=== PATIENT | male | born 1985 | race Caucasian/White ===

== ENCOUNTER 2020-12-03 02:53 | Observation (INO) | payer OTHER ==
[~2020-12-03] VITALS: Ht 175.3 cm; Wt 79.2 kg
[2020-12-03] VITALS (18 sets, daily range): BP systolic 104–129; BP diastolic 55–72
[2020-12-03] MEDS ORDERED: MAALOX 30 ML SUSP *UDC PO PRN (04:50)
[2020-12-03] MEDS ORDERED: MOM 30ML SUSPENSION UDC PO PRN (04:50)
[2020-12-03] MEDS ORDERED: ACETAMINOPHEN TAB 650MG DOSE (2X325MG) PO PRN (04:50)
[2020-12-03] MEDS: D5W/0.9% SODIUM CHLORIDE 1,000 ML IV SCH ×2 (05:25→17:53)
[2020-12-03 05:34] LABS: HEMATOCRIT 31.9 % (42.0-52.0); HEMOGLOBIN 10.8 g/dl (13.5-17.5); MEAN CORPUSCULAR HEMOGLOBIN 31.2 pg (27.0-33.0); MEAN CORPUSCULAR HGB CONC 33.9 g/dl (32.0-36.5); MEAN CORPUSCULAR VOLUME 92.2 fl (80.0-96.0); PLATELET COUNT, AUTOMATED 120 10^3/uL (150-450); RED BLOOD COUNT 3.46 10^6/uL (4.30-6.10); WHITE BLOOD COUNT 6.4 10^3/uL (4.0-10.0)
--- NOTE | 2020-12-03 05:38 | HPEPDOC ---
[facility] Medical History & Physical Date of Admission December 03, 2020 Date of Service: December 03, 2020 Attending Physician: KURT BELLA MD History and Physical CHIEF COMPLAINT: Bleeding per rectum HISTORY OF PRESENT ILLNESS: Mr. Ovalle is a 35-year-old male transferred from [facility] to [facility] for advanced care with a past medical history of Meckel's diverticulum for which he underwent resection 3 years ago at [facility] by and since then has had no issues whatsoever, except today at 10 PM when patient had a painless loose stool with bright red blood about 3-4 tablespoons in amount. This was followed by subsequent 4-5 bowel movements with darker red blood in it since then. Patient denies any other associated symptoms. Patient has no fevers/chills/abdominal pain/visible blood in urine/lightheadedness/dizziness/weakness/chest pain/shortness of breath/palpitations/recent illness or hospitalizations.Patient has a history of Meckel's diverticulum. He presented in a similar way but was resected 3 years ago. Patient is not on any blood thinners, did not eat anything unusual, is not taking any unusual supplements, did not eat anything out of the ordinary or try anything for the first time however he was traveling so he did eat out. After [facility] patient was diagnosed to have an acute GI bleed and for further specialized care was sent to [facility]. Patient has already received basic labs and CT abdomen with contrast ruling out any major abnormality as yet. PAST MEDICAL HISTORY: 1. Meckel's diverticulum. PAST SURGICAL HISTORY: 1. Resection for Meckel's diverticulum. SOCIAL HISTORY: Marital status: Resides in: Home in [place] Children: Yes Tobacco use: Never ETOH: Had 4 drinks of bourbon. Usually drinks 2-3 times per week. Illicit drug use: No Tattoos done unprofessionally: None. IV drug use: Denies Other relevant social factors: None FAMILY HISTORY: Father: Unremarkable Mother: Unremarkable Paternal grandfather: Diabetes mellitus type 2. Paternal grandmother: Colon cancer-in her 60s Hereditary Diseases: None Unexpected deaths due to medical reasons: No ALLERGIES: Please see below. REVIEW OF SYSTEMS: CONSTITUTIONAL: No fevers/chills/night sweats/unintentional weight loss. HEENT: No sore throat/runny nose. CARDIOVASCULAR: And no chest pain/orthopnea/PND/palpitations. RESPIRATORY: No shortness of breath/cough. GASTROINTESTINAL: No nausea/vomiting/constipation. Patient reports loose stools with blood since 10 PM last night. GENITOURINARY: No dysuria/polyuria. SKIN: No bleeding/bruising/rashes. MUSCULOSKELETAL: No joint pain. NEUROLOGICAL: No numbness/weakness/paresthesias. PSYCHIATRIC: No recent stressors/depression/anxiety. ENDOCRINE: No polydipsia/polyphagia/polyuria. HEMATOLOGIC/LYMPHATIC: No lumps or bumps. HOME MEDICATIONS: Please see below. PHYSICAL EXAMINATION: VITAL SIGNS: Temperature 97.6, pulse 68, respiratory rate 19, blood pressure 129/71, pulse oximetry 99 % on room air. GENERAL APPEARANCE: Patient is pretty anxious but is lying comfortably on his bed under no acute distress. HEENT: Intra-mild aortic, normocephalic, moist mucous membranes, PERRLA, EOMI, no conjunctival pallor, no scleral icterus, no lymphadenopathy palpated. CARDIOVASCULAR: Rate normal, rhythm regular. S1 and S2 heard. No murmurs appreciated. LUNGS: Clear to auscultation bilaterally. No wheezing/rhonchi/crackles heard. ABDOMEN: Flat abdomen, nondistended, non-tender in all quadrants, no organomegaly, hyperactive bowel sounds. MUSCULOSKELETAL: Normal range of motion in all joints, no joint stiffness or deformity noted. EXTREMITIES: Good volume pols, slow capillary refill, +1 pedal edema. NEUROLOGICAL: 5 over 5 grade muscle strength, sensations intact. Cranial nerves normal. PSYCHIATRIC: Alert oriented to time place and person, Normal mood and affect. Worried and tearful because of his situation appropriately. LABORATORY DATA: See below. IMAGING: Records is CTA in the patient's chart MICROBIOLOGY: Please see below. ASSESSMENT AND PLAN: Mr. Ovalle is a 35-year-old male transferred from [facility] to [facility] for advanced care with a past medical history of Meckel's diverticulum for which he underwent resection 3 years ago at [facility] by and since then has had no issues whatsoever, ex cept today at 10 PM when patient had a painless loose stool with bright red blood about 3-4 tablespoons in amount. This was followed by subsequent 4-5 bowel movements with darker red blood in it since then. Patient denies any other associated symptoms. Patient has no fevers/chills/abdominal pain/visible blood in urine/lightheadedness/dizziness/weakness/chest pain/shortness of jenny th/palpitations/recent illness or hospitalizations. Found to have normocytic anemia and blood in stools concerning for: #Acute GI bleed secondary to viral/bacterial gastroenteritis versus diverticulitis versus peptic ulcer disease versus recurrence of Meckel's diverticulum versus inflammatory bowel disease: -Patient has a history of Meckel's diverticulum. He presented in a similar way but was resected 3 years ago. -Continuous monitoring of vitals. Patient kept on a Clear Liquid Diet. -Labs were repeated to trend H&H's. -Type and screen was done. -CRP and ESR were ordered to look for inflammatory causes. -Patient was started on IV pantoprazole 40 mg twice a day. -Patient started on IV D5 with normal saline at 100 mls per hour. Reconsider discontinuing in the morning. -When necessary medications were ordered. -Stool for ova and parasites ordered. -C. difficile screen ordered -Morning team should consider a Gastroenterology consultation- main reason he is here. Recommendations are appreciated. #Anemia secondary to chronic GI blood loss versus iron deficiency anemia versus anemia of chronic disease: -Patient's hemoglobin was 12. -Have repeated CBC will trend H&H's. -Ordered a full iron panel, reticulocyte count, peripheral smear. -This should be followed up outpatient with the patient's PCP. DVT prophylaxis: Teds and sequentials. DISPOSITION: Pending improvement. Most likely observation status. Vital Signs Vital Signs Date Time Temp Pulse Resp B/P (MAP) Pulse Ox O2 Delivery O2 Flow Rate FiO2 12/03/20 03:36 97.6 68 19 129/71 (90) 99 Room Air Home Medications No Active Prescriptions or Reported Meds Allergies Coded Allergies: No Known Allergies (Verified Allergy, Unknown, 12/03/20) A-FIB/CHADSVASC A-FIB History Current/History of A-Fib/PAF?: No Current PO Anticoag Therapy: No David Huggins MD December 03, 2020 05:38
[2020-12-03 05:48] LABS: INR 1.02; PROTHROMBIN TIME 13.6 SECONDS (12.5-14.3)
[2020-12-03 05:52] LABS: ERYTHROCYTE SEDIMENTATION RATE 5 mm/hr (0-15)
[2020-12-03 06:05] LABS: ALBUMIN 3.3 GM/DL (3.2-5.2); ALT/SGPT 21 U/L (12-78); BILIRUBIN,TOTAL 0.2 MG/DL (0.2-1.0); BLOOD UREA NITROGEN 22 MG/DL (7-18); CARBON DIOXIDE LEVEL 26 MEQ/L (21-32); CHLORIDE LEVEL 110 MEQ/L (98-107); CREATININE FOR GFR 0.99 MG/DL (0.70-1.30); FERRITIN 17 NG/ML (26-388); GLOMERULAR FILTRATION RATE > 60.0 (>60); GLUCOSE, FASTING 94 MG/DL (70-100); IRON (FE) 50 UG/DL (65-175); PERCENT SATURATION 16.4 % (19.7-50.0); POTASSIUM SERUM 4.3 MEQ/L (3.5-5.1); SODIUM LEVEL 141 MEQ/L (136-145); TOTAL IRON BINDING CAPACITY 305 UG/DL (250-450); TOTAL PROTEIN 5.5 GM/DL (6.4-8.2)
[2020-12-03] MEDS ORDERED: GOLYTELY SOLN 4000 ML BTL PO ONE (06:30)
[2020-12-03] MEDS: PANTOPRAZOLE 40MG VIAL (C9113 PER 1) IV SCH ×3 (08:17→20:45)
[2020-12-03] MEDS ORDERED: propofoL 500 MG/50 ML VIAL As Ordered ONE (08:29)
[2020-12-03] MEDS ORDERED: LIDOCAINE 2% 100MG/5ML SDV (FOR ANES.) As Ordered ONE (08:30)
[2020-12-03] MEDS: CARBAMIDE PEROXIDE 6.5% OTIC SOLN 15ML AS SCH ×2 (09:00→20:45)
--- NOTE | 2020-12-03 12:36 | CR ---
CONSULTATION DATE: 12/03/2020 REQUESTING PHYSICIAN: Hospitalist service. REASON FOR CONSULTATION: Painless rectal bleeding. HISTORY OF PRESENT ILLNESS: This is a 35-year-old gentleman transferred from [facility] to [facility] for painless bright red blood per rectum. The patient is a 35-year-old gentleman with a past surgical history significant for resection of a Meckel's diverticulum for a similar presentation at a [facility]. Since that time, he has had no further episodes of rectal bleeding. He was feeling well until approximately 10:00-11:00 p.m. last night when he had a bloody, bright red blood per rectum. He had additional three or four bowel movements before he presented to [facility] and was subsequently transferred to [facility] for further evaluation. He is hemodynamically stable. His HB has dropped by 1.5 grams over past 6 hours. PAST MEDICAL HISTORY: None. PAST SURGICAL HISTORY: Meckel's diverticulum resection 2017. SOCIAL HISTORY: Negative for tobacco. Positive for 3-4 alcoholic beverages per week. MEDICATIONS AT HOME: None. There is no history of any recent nonsteroidal antiinflammatory drug (NSAID) intake recently. PHYSICAL EXAMINATION: Temperature 98.9, pulse 68, respiratory rate 18, blood pressure 104/55, pulse oximetry 100% on room air. Sitting down, his blood pressure is 128/72 with a pulse of 64. General:He is awake, alert, oriented times three in no acute distress. Nontoxic in appearance. He is ambulating in the room. He is very nervous. HEAD, EYES, EARS, NOSE AND THROAT: Grossly without any abnormality. CHEST: Clear bilaterally. HEART: Regular rate and rhythm. S1, S2. No murmurs or gallops. ABDOMEN: Soft, nontender. Good bowel sounds. No masses felt. EXTREMITIES: Negative for edema. LABORATORY DATA: Hemoglobin 10.8. Previous hemoglobin was 12.3 at [facility] approximately eight hours ago. Platelet count 120. BUN 22, creatinine 0.9. INR 1.02 IMPRESSION: Painless acute gastrointestinal (GI) bleed. RECOMMENDATION: Endoscopic evaluation including colonoscopy and upper endoscopy. Further recommendations depending on findings. DISCUSSION: The patient has had a previous resection for his Meckel's diverticulum. The anastomosis could be suspect. In any case, I think first we need to rule out a colonic bleed and an upper GI bleed. Once these have been ruled out, a tagged RBC/GI bleeding scan may be helpful or help by interventional radiology or vascular surgery service if available. MTDD
[2020-12-03] MEDS ORDERED: propofoL 200 MG/20 ML VIAL As Ordered ONE (13:27)
--- NOTE | 2020-12-03 13:38 | ROOR ---
Patient Name: Tereso Ovalle Procedure Date: 12/03/2020 11:07 AM Date of : 1985 Age: 35 Gender: Male Note Status: Finalized Procedure: Upper GI endoscopy Indications: Hematochezia, Active gastrointestinal bleeding Providers: Derrick Casas MD Referring MD: 2. Inpatient 2. Inpatient Requesting Provider: Medicines: Monitored Anesthesia Care Complications: No immediate complications. Procedure: Pre-Anesthesia Assessment: - The heart rate, respiratory rate, oxygen saturations, blood pressure, adequacy of pulmonary ventilation, and response to care were monitored throughout the procedure. The Endoscope was introduced through the mouth, and advanced to the third part of duodenum. Findings: The esophagus was normal. The stomach was normal. The examined duodenum was normal. Impression: - Normal esophagus. - Normal stomach. - Normal examined duodenum. - No specimens collected. -(no potential bleeding source found on this EGD to third portion duodenum) Recommendation: - Perform a colonoscopy today. Procedure Code(s): --- Professional --- 49180, Esophagogastroduodenoscopy, flexible, transoral; diagnostic, including collection of specimen(s) by brushing or washing, when performed (separate procedure) Diagnosis Code(s): --- Professional --- K92.2, Gastrointestinal hemorrhage, unspecified K92.1, Melena (includes Hematochezia) CPT copyright 2019 [employer]. All rights reserved. The codes documented in this report are preliminary and upon glass etcher review may be revised to meet current compliance requirements. Derrick Casas MD Derrick Casas MD 12/03/2020 1:37:41 PM Electronically signed by Derrick Casas MD Number of Addenda: 0 Note Initiated On: 12/03/2020 11:07 AM Estimated Blood Loss: Estimated blood loss: none.
--- NOTE | 2020-12-03 13:52 | ROOR ---
Patient Name: Tereso Ovalle Procedure Date: 12/03/2020 11:10 AM Date of : 1985 Age: 35 Gender: Male Note Status: Finalized Procedure: Colonoscopy Indications: Hematochezia, Acute post hemorrhagic anemia Providers: Derrick Casas MD Referring MD: 2. Inpatient 2. Inpatient Requesting Provider: Medicines: Monitored Anesthesia Care Complications: No immediate complications. Procedure: Pre-Anesthesia Assessment: - The heart rate, respiratory rate, oxygen saturations, blood pressure, adequacy of pulmonary ventilation, and response to care were monitored throughout the procedure. The Colonoscope was introduced through the anus and advanced to 15 cm into the ileum. The colonoscopy was performed without difficulty. The patient tolerated the procedure well. The quality of the bowel preparation was adequate. (golytely 4 liters over 1 hour) Findings: The perianal and digital rectal examinations were normal. The colon (entire examined portion) appeared normal. The terminal ileum appeared normal. Slightly pink colonic prep fluid was found in the entire colon. Impression: - The entire colon is normal. - The terminal ileum was normal x 15 cm. - Slightly pink colon/prep fluid in the entire colon, but no active/recent bleeding site identified. - No specimens collected. Recommendation: Observe on clear liquid diet. For rebleeding, will need tagged RBC/GI bleeding scan and/or Vascular surgery consult/Interventional radiology consult to assess/localize bleeding site. Procedure Code(s): --- Professional --- 96876, Colonoscopy, flexible; diagnostic, including collection of specimen(s) by brushing or washing, when performed (separate procedure) Diagnosis Code(s): --- Professional --- K92.2, Gastrointestinal hemorrhage, unspecified K92.1, Melena (includes Hematochezia) D62, Acute posthemorrhagic anemia CPT copyright 2019 [employer]. All rights reserved. The codes documented in this report are preliminary and upon cpc coder review may be revised to meet current compliance requirements. Derrick Casas MD Derrick Casas MD 12/03/2020 1:52:30 PM Electronically signed by Derrick Casas MD Number of Addenda: 0 Note Initiated On: 12/03/2020 11:10 AM Estimated Blood Loss: Estimated blood loss: none.
[2020-12-03 18:51] LABS: HEMATOCRIT 33.9 % (42.0-52.0); HEMOGLOBIN 11.4 g/dl (13.5-17.5)
[2020-12-04 00:40] LABS: HEMATOCRIT 33.2 % (42.0-52.0); HEMOGLOBIN 11.2 g/dl (13.5-17.5)
[2020-12-04 02:00] VITALS: BP 115/63
[2020-12-04] MEDS: D5W/0.9% SODIUM CHLORIDE 1,000 ML IV SCH (02:12)
[2020-12-04 05:53] LABS: HEMOGLOBIN 11.3 g/dl (13.5-17.5); MEAN CORPUSCULAR HEMOGLOBIN 30.2 pg (27.0-33.0); MEAN CORPUSCULAR HGB CONC 33.2 g/dl (32.0-36.5); MEAN CORPUSCULAR VOLUME 90.9 fl (80.0-96.0); PLATELET COUNT, AUTOMATED 107 10^3/uL (150-450); RED BLOOD COUNT 3.74 10^6/uL (4.30-6.10); WHITE BLOOD COUNT 4.4 10^3/uL (4.0-10.0)
[2020-12-04 06:00] VITALS: BP 115/69
[2020-12-04 06:13] LABS: ALT/SGPT 16 U/L (12-78); BILIRUBIN,TOTAL 0.6 MG/DL (0.2-1.0); BLOOD UREA NITROGEN 9 MG/DL (7-18); CALCIUM LEVEL 8.9 MG/DL (8.5-10.1); CARBON DIOXIDE LEVEL 30 MEQ/L (21-32); CHLORIDE LEVEL 110 MEQ/L (98-107); CREATININE FOR GFR 1.07 MG/DL (0.70-1.30); GLOMERULAR FILTRATION RATE > 60.0 (>60); GLUCOSE, FASTING 120 MG/DL (70-100); POTASSIUM SERUM 3.8 MEQ/L (3.5-5.1); SODIUM LEVEL 144 MEQ/L (136-145); TOTAL PROTEIN 5.1 GM/DL (6.4-8.2)
[2020-12-04 06:19] LABS: CLOSTRIDIUM DIFFICILE PCR NEGATIVE (NEGATIVE)
[2020-12-04] MEDS: PANTOPRAZOLE 40MG VIAL (C9113 PER 1) IV SCH (08:21)
[2020-12-04] MEDS: CARBAMIDE PEROXIDE 6.5% OTIC SOLN 15ML AS SCH (08:21)
[2020-12-04] MEDS ORDERED: PROTPAK PO (09:27)
[2020-12-04] MEDS ORDERED: CARA1TAB6 PO ×2 (09:28→09:40)
[2020-12-04] MEDS ORDERED: PROT1TAB2 PO (09:40)
[2020-12-04 10:00] VITALS: BP 141/73
--- NOTE | 2020-12-04 11:25 | DSES ---
DISCHARGE SUMMARY DATE OF ADMISSION: 12/03/2020 DATE OF DISCHARGE: 12/04/2020 COLORING CHECKER: Derrick Casas M.D. PROCEDURES: Esophagogastroduodenoscopy (EGD). DISCHARGE DIAGNOSES: 1. Acute gastrointestinal (GI) bleed. 2. Acute occult blood loss. 3. History of Meckel's diverticulum. DISCHARGE MEDICATIONS: - Protonix 40 mg daily - Carafate 1 gram twice a day with meals HOSPITAL COURSE: This is a 35-year-old male transferred from [facility], visiting the area for a wedding, presented to [facility] emergency room with bright red blood per rectum, about 3-4 tablespoons, painless, without fever, chills or abdominal pain. Patient has a history of Meckel's diverticulum with resection three years ago at [facility] in [place] by Dr. Howell, and since then has had no issues. Patient denied any chest pain, pressure, tightness, lightheadedness, dizziness, palpitations, near syncope, and was admitted for observation with admission hemoglobin of 10.8, hematocrit 31.9. Patient was not orthostatic, was kept nothing by mouth (NPO) on intravenous (IV) fluids. He had one large bowel movement on 12/03/2020 followed by two smaller bowel movements. Patient was transfused 2 units of red blood cells (RBCs) with resultant increase in hemoglobin to 11.3, hematocrit of 34. Emergency Medical Dispatcher, Dr. Casas, was consulted. Patient had an esophagogastroduodenoscopy (EGD), which was normal with no signs of bleeding. Colonoscopy was also unremarkable. Patient was restarted back on clear liquid diet with no recurrent episodes of bloody bowel movements. Should the patient have recurrent bowel movements with decrease in hemoglobin, gastroenterology (GI) recommended a tagged RBC scan and/or vascular surgical or interventional radiological consultation to assess and localize bleeding site. Patient has had no issues overnight and is stable for discharge. PHYSICAL EXAMINATION ON DISCHARGE: Temperature 98, pulse 79, respiratory rate 16, blood pressure 115/69, 99% on room air. GENERAL: Awake, alert, oriented to person, place and time, answering questions appropriately. Patient had no pallor or icterus, speaks in full sentences. No conversational dyspnea. LUNGS: Clear to auscultation. No wheezing, rales or rhonchi. HEART: S1, S2. Sinus rhythm. ABDOMEN: Soft, nontender, nondistended. Positive bowel sounds. EXTREMITIES: No cyanosis, clubbing or pitting edema. LABORATORY DATA ON DISCHARGE: White count 4.4, hemoglobin 11, hematocrit 34, platelet count 107. Sodium 144, potassium 3.8, chloride 110, bicarbonate 30, BUN 9, creatinine 1, glucose 120. One set of blood culture negative. Hemoccult stool 12/03/2020 positive. Esophagogastroduodenoscopy (EGD): Normal esophagus. Colonoscopy: No active signs of bleeding. TIME SPENT ON DISCHARGE: 30 minutes.
[2020-12-04 12:14] LABS: HEMATOCRIT 36.6 % (42.0-52.0)
--- NOTE | 2020-12-04 19:16 | ECGEPIP ---
[facility] Test Date: 2020-12-04 Pat Name: BONI DAVE Department: Room: [place] [address] Gender: Male [place]: CAR : 1985 Requested By: David Huggins Order Number: [id number] Reading MD: Beni Torres Measurements Intervals [place] Rate: 44 P: 63 WI: 178 QRS: 82 QRSD: 104 T: 52 QT: 422 QTc: 360 Interpretive Statements Marked sinus bradycardia Incomplete right bundle branch block Early anterior R wave progression Comparison tracing not on file Electronically Signed on 12-04-2020 19:16:02 EDT by Beni Torres
== END 2020-12-04 14:26 | disposition home or self-care (01) ==
LOC: M MSPAV 03:36 → INTOOBSV 03:36
PROVIDERS: ADMIT Family Medicine; ATTEND General Practice
DX: K92.1 Melena (principal); K92.2 Gastrointestinal hemorrhage, unspecified; D62 Acute posthemorrhagic anemia; Z87.19 Personal history of other diseases of the digestive system
CPT/HCPCS: 36415; 36430; 43235; 45378; 80053; 80307; 81001; 82270; 82728; 83605; 83735; 84443; 84466; 85014; 85018; 85027; 85046; 85610; 85652; 86140; 86850; 86900; 86901; 86920; 87040; 87177; 87493; 93005; 96361; 96374; C9113; P9016; U0002